=== PATIENT | female | born 1965 | race Caucasian/White ===

== ENCOUNTER 2017-10-15 17:57 | Emergency (ER) | payer OTHER ==
[2017-10-15 18:06] VITALS: BP 147/85; PULSE 109; TEMP 98.3; BMI 33.6
--- NOTE | 2017-10-15 18:06 | PDOC ---
Rapid Medical Evaluation Time Seen by Provider: 10/15/17 18:02 Medical Evaluation: Allergies Allergy/AdvReac Type Severity Reaction Status Date / Time No Known Allergies Allergy Verified 02/21/16 12:55 10/15/17 18:02 I have performed a brief in-person evaluation of this patient. The patient presents with a chief complaint of: nausea and vomiting since 5am. Patient report pain to right flank Denies urinary symptoms, fever or chills Pertinent physical exam findings: NAD unlabored breathing no abdominal tenderness no cva tenderness I have ordered the following: urinalysis, urine culture The patient will proceed to the ED for further evaluation.
[2017-10-15 20:47] LABS: URINE APPEARANCE CLEAR; URINE BILIRUBIN NEGATIVE (NEGATIVE); URINE BLOOD NEGATIVE (NEGATIVE); URINE COLOR YELLOW; URINE GLUCOSE (UA) NEGATIVE (NEGATIVE); URINE KETONE NEGATIVE (NEGATIVE); URINE LEUK ESTERASE NEGATIVE (NEGATIVE); URINE NITRITE NEGATIVE (NEGATIVE); URINE PROTEIN NEGATIVE (NEGATIVE); URINE UROBILINOGEN NEGATIVE mg/dL (0.2-1.0)
[2017-10-15] MEDS ORDERED: ONDANSETRON 4 MG/2 ML VIAL IVPUSH ONE ×2 (20:59→21:10)
[2017-10-15] MEDS ORDERED: SODIUM CHLORIDE 0.9% 1000 ML INFUS.BAG IV ONE (20:59)
--- NOTE | 2017-10-15 21:10 | PDOC ---
History of Present Illness - General Chief Complaint: Pain Stated Complaint: NAUSEA/VOMITING Time Seen by Provider: 10/15/17 18:02 - History of Present Illness Initial Comments: 10/15/17 21:07 CHIEF COMPLAINT: vomiting, abd pain HISTORY OF PRESENT ILLNESS: 51 yo F with hx of NIDDM, osteoporosis, chronic back pain, and foot surgery, presents to ED with nausea and vomiting since this morning around 5 am and R flank pain. Patient states she has been unable to tolerate any food or fluids "and just throws everything up." Patient reports taking Sudafed today but threw that up also. Patient denies any diarrhea but reports chills. Patient states her last BM was today and was normal. Patient denies any urinary symptoms. PAST MEDICAL HISTORY: Denies past medical history FAMILY HISTORY: Denies SOCIAL HISTORY: Denies tobacco, alcohol, illicit drug use. SURGICAL HISTORY: Denies ALLERGIES: No known drug allergies REVIEW OF SYSTEMS General/Constitutional: +Chills. Denies fever. Denies weakness, weight change. HEENT: Denies change in vision. Denies ear pain or discharge. Denies sore throat. Cardiovascular: Denies chest pain or shortness of breath. Respiratory: Denies cough, wheezing, or hemoptysis. Gastrointestinal: Vomiting today. Denies diarrhea, rectal bleeding. Genitourinary: Denies dysuria, frequency, or change in urination. Musculoskeletal: Denies joint or muscle swelling or pain. Denies neck or back pain. Skin and breasts: Denies rash or easy bruising. Neurologic: Denies headache, vertigo, loss of consciousness, or loss of sensation. PHYSICAL EXAM General Appearance: Well-appearing, appropriately dressed. No apparent distress , no intoxication. HEENT: EOMI, PERRLA, normal ENT inspection, normal voice, TMs normal, pharynx normal. No conjunctival pallor. No photophobia, scleral icterus. Cardiovascular: RRR. S1, S2. Vascular Pulses: Dorsalis-Pedis (R): 2+, Dorsalis-Pedis (L): 2+ Gastrointestinal/Abdominal: Tenderness to LLQ. Normal bowel sounds. Abdomen soft, non-distended. No tenderness or rebound tenderness. No organomegaly, pulsatile mass, guarding, hernia, hepatomegaly, splenomegaly. Musculoskeletal/Extremities: R CVA tenderness. Normal inspection. FROM of all extremities, normal capillary refill. Pelvis Stable. No CVA tenderness. No tenderness to extremities, pedal edema, swelling, erythema or deformity. Integumentary: Appropriate color, dry, warm. No cyanosis, erythema, jaundice or rash Neurologic: wellness ambassador II-XII intact. Fully oriented, alert. Appropriate mood/affect. Motor strength 5/5. No appreciable EOM palsy, facial droop or sensory deficit. 10/15/17 22:54 Past History - Past Medical History Allergies/Adverse Reactions: Allergies Allergy/AdvReac Type Severity Reaction Status Date / Time No Known Allergies Allergy Verified 10/15/17 18:06 Home Medications: Ambulatory Orders Acetaminophen/Caffeine/Butalb [Fioricet -] 1 tab PO PRN 10/15/17 Gabapentin 600 mg PO HS 10/15/17 Sitagliptin Phosphate [Januvia] 25 mg PO DAILY 10/15/17 Ondansetron [Zofran *Odt*] 8 mg SL TID PRN #21 od.tablet 10/16/17 COPD: No Diabetes: Yes - Suicide/Smoking/Psychosocial Hx Smoking Status: No Smoking History: Never smoked Number of Cigarettes Smoked Daily: 0 Information on smoking cessation initiated: No Hx Alcohol Use: No Drug/Substance Use Hx: No Substance Use Type: None *Physical Exam - Vital Signs Last Vital Signs Temp Pulse Resp BP Pulse Ox 98.3 F 109 H 19 147/85 98 10/15/17 18:03 10/15/17 18:03 10/15/17 18:03 10/15/17 18:03 10/15/17 18:03 ED Treatment Course - LABORATORY CBC & Chemistry Diagram: 10/15/17 20:50 10/15/17 21:25 - ADDITIONAL ORDERS Additional order review: Laboratory Results 10/15/17 20:40 Urine Color Yellow Urine Appearance Clear Urine pH 7.0 D Ur Specific [place] 1.021 Urine Protein Negative Urine Glucose (UA) Negative Urine Ketones Negative Urine Blood Negative Urine Nitrite Negative Urine Bilirubin Negative Urine Urobilinogen Negative Medical Decision Making - Medical Decision Making 10/15/17 22:59 51 yo F with hx of NIDDM, osteoporosis, chronic back pain, and foot surgery, presents to ED with nausea and vomiting since this morning around 5 am and R flank pain. VS notable for HR of 109. -CBC, CMP, lipase -IVF, Zofra, Pepcid Patient reassessed, reports that nausea has resolved but abdominal/flank pain persists and is "really bad." Patient is pale and appears uncomfortable. -Abdomen CT 10/16/17 00:30 CT negative for bowel obstruction, diverticulitis, acute antoine, appendicitis. Will d/c to home with Zofran and close f/u with GI. Please take medications as prescribed and follow up with gastroenterology by the END OF THIS WEEK. *DC/Admit/Observation/Transfer Diagnosis at time of Disposition: Vomiting Qualifiers: Vomiting type: unspecified Vomiting Intractability: non-intractable Nausea presence: with nausea Qualified Code(s): R11.2 - Nausea with vomiting, unspecified Abdominal pain Qualifiers: Abdominal location: right upper quadrant Qualified Code(s): R10.11 - Right upper quadrant pain - Discharge Dispostion Disposition: HOME Condition at time of disposition: Stable Admit: No - Prescriptions Prescriptions: Ondansetron [Zofran *Odt*] 8 mg SL TID PRN #21 od.tablet PRN Reason: Nausea And/Or Vomiting - Referrals Referrals: Raul Ayers MD [Primary Care Provider] - - Patient Instructions Printed Discharge Instructions: DI for Vomiting -- Adult Additional Instructions: Please take medications as prescribed and drink plenty of fluids for rehydration. Follow up with Dr. Ayers and gastroenterology by the end of this week. If you develop any persistent vomiting, fever, chills, diarrhea, new abdominal pain, or any new or worsening symptoms, please return to the ER. - Post Discharge Activity Forms/Work/School Notes: Back to Work
[2017-10-15] MEDS ORDERED: FAMOTIDINE IV 20 MG/12 ML VIAL IVPUSH ONE (21:12)
[2017-10-15] MEDS ORDERED: FAMOTIDINE 20 MG/50 ML IVPB 20 MG/50 ML MG IVPB ONE (21:17)
[2017-10-15] MEDS ORDERED: ONDANSETRON 4 MG/2 ML VIAL ONE (21:17)
[2017-10-15 22:01] LABS: ALBUMIN 3.9 g/dl (3.4-5.0); ANION GAP 7 (8-16); CALCIUM 8.9 mg/dL (8.5-10.1); CO2 28 mmol/L (21-32); CREATININE 0.6 mg/dL (0.55-1.02); GLUCOSE,RANDOM 130 mg/dL (74-106); SGPT/ALT 29 U/L (12-78)
[2017-10-15 22:02] LABS: ALK PHOS 139 U/L (45-117); BILIRUBIN,TOTAL 0.5 mg/dL (0.2-1.0); TOT PROT 7.3 g/dl (6.4-8.2)
[2017-10-15 22:03] LABS: SGOT/AST 15 U/L (15-37)
[2017-10-15 23:08] LABS: BASO % 0.2 % (0-2.0); EOS % 0.6 % (0-4.5); MCH 30.1 pg (25.7-33.7); MCHC 33.3 g/dl (32.0-36.0); MEAN CELL VOLUME 90.3 fl (80-96); NEUT % 78.3 % (42.8-82.8); PLATELET COUNT 181 K/MM3 (134-434); RDW 14.9 % (11.6-15.6); WHITE BLOOD COUNT 6.6 K/mm3 (4.0-10.0)
[2017-10-16] MEDS ORDERED: KETOROLAC TROMETHAMINE 30 MG/1 ML VIAL IVPUSH ONE (00:10)
[2017-10-16] MEDS ORDERED: KETOROLAC TROMETHAMINE 30 MG/1 ML VIAL ONE (00:31)
[2017-10-16 10:43] LABS: URINE LEUK ESTERASE Negative (NEGATIVE)
== END 2017-10-16 01:16 | disposition home or self-care (01) ==
LOC: JER 17:57
PROC: 3E0337Z Introduction of Electrolytic and Water Balance Substance into Peripheral Vein, Percutaneous Approach (ICD-10-PCS; principal; 2017-10-15)
PROC: 3E033GC Introduction of Other Therapeutic Substance into Peripheral Vein, Percutaneous Approach (ICD-10-PCS; 2017-10-15)
PROC: 3E0333Z Introduction of Anti-inflammatory into Peripheral Vein, Percutaneous Approach (ICD-10-PCS; 2017-10-15)
DX: R10.11 Right upper quadrant pain (principal); E11.9 Type 2 diabetes mellitus without complications; G89.29 Other chronic pain
CPT/HCPCS: 36415; 74177-TC; 80053; 81003; 83690; 84703; 85025; 87086; 96365; 96375; 99283-25

== ENCOUNTER 2019-04-24 15:55 | Emergency (ER) | payer OTHER ==
--- NOTE | 2019-04-24 16:08 | PDOC ---
Rapid Medical Evaluation Chief Complaint: Pain Time Seen by Provider: 04/24/19 16:05 Medical Evaluation: Allergies Allergy/AdvReac Type Severity Reaction Status Date / Time No Known Allergies Allergy Verified 10/15/17 18:06 04/24/19 16:05 I have performed a brief in-person evaluation of this patient. The patient presents with a chief complaint of: right 4th finger crushed in door yesterday Pertinent physical exam findings: swollen / bruised PIP 4th digit I have ordered the following: Xray The patient will proceed to the ED for further evaluation. Discharge Disposition - Diagnosis Finger pain, right - Referrals - Patient Instructions - Post Discharge Activity
[2019-04-24 16:10] VITALS: BP 102/66; PULSE 78; TEMP 98.2; BMI 34.2
--- NOTE | 2019-04-24 16:46 | PDOC ---
History of Present Illness - General Chief Complaint: Injury Stated Complaint: INJURY Time Seen by Provider: 04/24/19 16:05 History Source: Patient - History of Present Illness Initial Comments: 04/24/19 16:46 53-year-old female complaining of right fourth digit pain at the PIP after closing the finger in the door yesterday. Patient is able to passive ROM. Noted to have swelling and pain to palpation. Patient has sensation at the fingertip.. Past History - Past Medical History Allergies/Adverse Reactions: Allergies Allergy/AdvReac Type Severity Reaction Status Date / Time No Known Allergies Allergy Verified 04/24/19 16:07 Home Medications: Ambulatory Orders Acetaminophen/Caffeine/Butalb [Fioricet -] 1 tab PO PRN 10/15/17 Gabapentin 600 mg PO HS 10/15/17 Sitagliptin Phosphate [Januvia] 25 mg PO DAILY 10/15/17 Ondansetron [Zofran *Odt*] 8 mg SL TID PRN #21 od.tablet 10/16/17 COPD: No Diabetes: Yes - Suicide/Smoking/Psychosocial Hx Smoking Status: No Smoking History: Never smoked Have you smoked in the past 12 months: No Number of Cigarettes Smoked Daily: 0 Hx Alcohol Use: No Drug/Substance Use Hx: No Substance Use Type: None Review of Systems - Review of Systems Able to Perform ROS?: Yes Is the patient limited [place] proficient: No Musculoskeletal: Yes: Other (right 4th digit finger pain) *Physical Exam - Vital Signs Last Vital Signs Temp Pulse Resp BP Pulse Ox 98.2 F 78 18 102/66 100 04/24/19 16:07 04/24/19 16:07 04/24/19 16:07 04/24/19 16:07 04/24/19 16:07 - Physical Exam General Appearance: Yes: Appropriately Dressed Extremity: positive: Other (finger edemataous. pain on palpation at the PIP. no deformity. + passive romn + sensation) Integumentary: positive: Normal Color, Dry, Warm Neurologic: positive: Fully Oriented, Alert, Normal Mood/Affect Medical Decision Making - Medical Decision Making 04/24/19 16:48 A: finger injury 4th digit . right P: xray: no acute fracture. splinted hand follow up discussed with patient *DC/Admit/Observation/Transfer Diagnosis at time of Disposition: Finger pain, right - Discharge Dispostion Disposition: HOME - Referrals Referrals: Raul Ayers MD [Primary Care Provider] - Dinesh Schwartz MD [Staff Physician] - Call tomorrow - Patient Instructions Printed Discharge Instructions: Finger Sprain Additional Instructions: keep finger splint on follow up with an orthopedic doctor in 1 week. return to the ER for any worsening symptoms. - Post Discharge Activity Forms/Work/School Notes: Back to Work
== END 2019-04-24 16:54 | disposition home or self-care (01) ==
LOC: JERFT 15:55
PROC: 2W3JX1Z Immobilization of Right Finger using Splint (ICD-10-PCS; principal; 2019-04-24)
DX: S63.694A Other sprain of right ring finger, initial encounter (principal); W23.0XXA Caught, crushed, jammed, or pinched between moving objects, initial encounter; Y93.89 Activity, other specified; Y92.89 Other specified places as the place of occurrence of the external cause; Y99.8 Other external cause status
CPT/HCPCS: 73140-TC-RT-FY; 99281-25

== ENCOUNTER 2019-08-02 13:34 | Emergency (ER) | payer OTHER ==
[2019-08-02 13:59] VITALS: BP 118/65; PULSE 75; TEMP 97.9; BMI 34.5
[2019-08-02] MEDS ORDERED: ACETAMINOPHEN 325 MG TABLET (FP) PO ONE (15:00)
[2019-08-02] MEDS ORDERED: LIDOCAINE 5% TOPICAL PATCH TP ONE (15:00)
--- NOTE | 2019-08-02 15:00 | PDOC ---
History of Present Illness - General Chief Complaint: Injury Stated Complaint: FALL ON STOMACH Time Seen by Provider: 08/02/19 13:59 History Source: Patient Exam Limitations: No Limitations Past History - Travel Traveled outside of the country in the last 30 days: No Close contact w/someone who was outside of country & ill: No - Past Medical History Allergies/Adverse Reactions: Allergies Allergy/AdvReac Type Severity Reaction Status Date / Time No Known Allergies Allergy Verified 08/02/19 13:55 Home Medications: Ambulatory Orders Acetaminophen/Caffeine/Butalb [Fioricet -] 1 tab PO PRN 10/15/17 Gabapentin 600 mg PO HS 10/15/17 Sitagliptin Phosphate [Januvia] 25 mg PO DAILY 10/15/17 Ondansetron [Zofran *Odt*] 8 mg SL TID PRN #21 od.tablet 10/16/17 COPD: No Diabetes: Yes - Psycho Social/Smoking Cessation Hx Smoking Status: No Smoking History: Never smoked Have you smoked in the past 12 months: No Number of Cigarettes Smoked Daily: 0 Information on smoking cessation initiated: No Hx Alcohol Use: No Drug/Substance Use Hx: No Substance Use Type: None *Physical Exam - Vital Signs Last Vital Signs Temp Pulse Resp BP Pulse Ox 97.9 F 75 16 118/65 100 08/02/19 13:56 08/02/19 13:56 08/02/19 13:56 08/02/19 13:56 08/02/19 13:56 Discharge - Discharge Information Problems reviewed: Yes Clinical Impression/Diagnosis: Neck pain Concussion Qualifiers: Encounter type: initial encounter Loss of consciousness presence/duration: without LOC Qualified Code(s): S06.0X0A - Concussion without loss of consciousness, initial encounter Condition: Stable Disposition: HOME - Admission No - Follow up/Referral Referrals: Raul Ayers MD [Primary Care Provider] - - Patient Discharge Instructions Patient Printed Discharge Instructions: DI for Concussion Additional Instructions: Your evaluated for your lightheadedness and dizziness today. Your head CT and neck CT were negative for fractures or bleeds. Your next CT did show a nodule on your thyroid. It is important that you follow -up with your primary care doctor regarding the results. You are given a copy of your CT results. It is most likely a concussion given your fall couple days ago. Please rest, avoid using screens or close reading to let your brain rest Take your meclizine as prescribed. You may take Tylenol or Motrin as needed for pain. Follow dosing instructions on the bottle. Please follow-up with your primary care provider this week Return to the ER for any new or worsening symptoms. - Post Discharge Activity
[2019-08-02] MEDS ORDERED: LIDOCAINE 5% TOPICAL PATCH ONE (15:26)
[2019-08-02] MEDS ORDERED: ACETAMINOPHEN 325 MG TABLET (FP) ONE (15:26)
== END 2019-08-02 18:10 | disposition home or self-care (01) ==
LOC: JERFT 13:34
DX: S06.0X0A Concussion without loss of consciousness, initial encounter (principal); W18.39XA Other fall on same level, initial encounter; Y93.89 Activity, other specified; Y92.89 Other specified places as the place of occurrence of the external cause; Y99.8 Other external cause status; E11.9 Type 2 diabetes mellitus without complications; Z79.84 Long term (current) use of oral hypoglycemic drugs
CPT/HCPCS: 70450-TC; 72125-TC; 99281-25

== ENCOUNTER 2021-08-23 16:25 | Emergency (ER) | payer OTHER ==
[2021-08-23 16:38] VITALS: BP 127/67; PULSE 76; TEMP 98.1; BMI 33.5
[2021-08-23] MEDS ORDERED: ACETAMINOPHEN 500 MG TABLET (FP) PO ONE (17:26)
[2021-08-23] MEDS ORDERED: METOCLOPRAMIDE HCL 10 MG TABLET (FP) PO ONE ×2 (17:26→17:30)
[2021-08-23] MEDS ORDERED: ACETAMINOPHEN 500 MG TABLET (FP) ONE (17:30)
== END 2021-08-23 18:48 | disposition home or self-care (01) ==
LOC: JER 16:25
DX: G44.201 Tension-type headache, unspecified, intractable (principal)
CPT/HCPCS: 70450-TC; 99284-25

== ENCOUNTER 2022-11-30 09:09 | Emergency (ER) | payer OTHER ==
[2022-11-30 09:26] VITALS: BP 120/72; PULSE 72; RESP 16; TEMP 98; BMI 33.3
== END 2022-11-30 11:00 | disposition home or self-care (01) ==
LOC: FER 09:09
DX: B02.9 Zoster without complications (principal); B34.9 Viral infection, unspecified
CPT/HCPCS: 0241U-QW; 99283-25

== ENCOUNTER 2023-04-14 09:59 | Emergency (ER) | payer OTHER ==
[2023-04-14 10:02] VITALS: BP 124/85; PULSE 70; RESP 20; TEMP 98.4; BMI 33.5
== END 2023-04-14 12:51 | disposition home or self-care (01) ==
LOC: JERFT 09:59
DX: M25.562 Pain in left knee (principal)
CPT/HCPCS: 73562-TC-LT-FY; 99283-25